=== PATIENT | female | born 2005 | race Caucasian/White ===

== ENCOUNTER 2024-12-04 07:21 | Emergency (ER) | payer BC, SELFPAY ==
[2024-12-04 07:29] VITALS: BP 130/100
--- NOTE | 2024-12-04 08:03 | ED.GENMED ---
History of Present Illness
General
Chief Complaint: Skin Problem
Source: patient
Exam Limitations: none
Time Seen by Provider: 12/04/24 07:47
History of Present Illness
History of Present Illness:
19yoF with a history of anxiety presenting for evaluation of a skin rash. Patient had a tattoo placed 2 days ago. Second skin was placed on the tattoo which was supposed to remain in place for 5-6 days. The second skin started to peel off so she
removed it yesterday and she put a Texaderm dressing on. About 20 minutes after placing this dressing, she started to feel a burning sensation on her skin. She removed the Texaderm but she continues to have a burning sensation and a rash. She
denies any itching. No fevers, vomiting, diarrhea, shortness of breath. She has a history of skin reactions to adhesives in the past.
Phy Exam
General Physical Exam
General Presentation: well appearing and no apparent distress
General age: appears stated age
General Skin: warm and dry
General Habitus: normal
General Mental: alert
ENT Exam
ENT Exam: normocephalic
Pulmonary Exam
Pulmonary Exam: no respiratory distress
Neurological Exam
Neurological Exam: alert
Skin Exam
Skin Exam: other (Tattoo noted to the L flank with surrounding well-demarcated blanchable erythema consistent with a localized skin reaction. No drainage or signs of infection. )
Psychiatric Exam
Psychiatric Exam: normal mood/affect
Course
Orders/Labs/Results
Orders:
Orders
12/04/24 08:13
Hydrocortisone [Hydrocortisone 1% Cream] See Dose Instructions TOPICAL NOW STA
Vital Signs
Initial and Last Documented VS:
Initial Vital Signs
Temp Pulse Resp BP Pulse Ox
98.2 F 85 16 130/100 98
12/04/24 07:29 12/04/24 07:29 12/04/24 07:29 12/04/24 07:29 12/04/24 07:29
Last Documented Vital Signs
Temp Pulse Resp BP Pulse Ox
98.2 F 85 16 130/100 98
12/04/24 07:29 12/04/24 07:29 12/04/24 07:29 12/04/24 07:29 12/04/24 07:29
MDM/Problems Addressed
Differential Diagnosis Includes:
19yoF here a skin reaction after applying a Texaderm dressing yesterday to a new tattoo. Immediately started having a burning sensation to the skin after placing this. VSS. She denies any systemic symptoms. On exam, there is a well demarcated area
of blanchable erythema surrounding the tattoo. Presentation consistent with a localized skin reaction to adhesive. No clinical signs of infection noted.
Advised hydrocortisone cream BID and Benadryl PRN. Initial plan was to give patient a dose of Decadron although she declines this and prefers to trial topical steroids first. Advised f/u with PCP and return to the ED with any signs of infection.
Patient in agreement with plan and was discharged in stable condition.
*Critical Care Note
Total Time (30-74mins, 75-104mins- exclusive of procedures): Not Applicable
ED Attending Note
-
Portions of this chart may have been created with voice recognition software.� Occasional wrong word or��sound alike� substitutions may have occurred due to the inherent limitations of voice recognition software.
Discharge Plan
Departure
Patient Disposition: Home (Routine Discharge)
Date of Disposition: 12/04/24
Time of Disposition: 08:06
Patient with high blood pressure during this ER visit?: No
Discharge Problem:
Allergic contact dermatitis due to adhesives
Instructions: Contact dermatitis
Activity Restrictions/Additional Instructions:
Apply hydrocortisone cream twice a day x 1 week. Take Benadryl 25mg every 6 hours as needed.
Please follow-up with your family doctor. Return to the ER with any worsening symptoms or signs of infection.
Interventions
Interventions:
*Risk Screen - Suicide Last Done: 12/04/24 07:29
*General Assessment Last Done: 12/04/24 08:17
*Neglect/Abuse Screening Last Done: 12/04/24 07:29
ED- Fall Risk Assessment Last Done: 12/04/24 08:17
*ED COVID-19 Vaccine History Last Done: 12/04/24 08:17
ED-Skin Assessment Last Done: 12/04/24 08:17
Discharge Date and Time
Discharge Date/Time: 12/04/24 08:46
Print Language: [id number]
[2024-12-04] MEDS: HYDROCORTISONE 1% CREAM 1 APPLIC TOPICAL (08:25)
== END 2024-12-04 08:46 | disposition home or self-care (01) ==
LOC: EMR 07:21
PROVIDERS: EMERGENCY PHYSICIAN Emergency Medicine
DX: L23.1 Allergic contact dermatitis due to adhesives (principal)
CPT/HCPCS: 99283